=== PATIENT | female | born 1975 | race Caucasian/White ===

== ENCOUNTER 2019-12-07 20:00 | Emergency (ER) | payer OTHER, SELFPAY ==
[2019-12-07 20:10] VITALS: BP 150/85; PULSE 96; RESP 20; TEMP 37.2; O2SAT 98; BMI 22.7
--- NOTE | 2019-12-07 20:33 | ED_ITS ---
HPI - General Adult General Chief complaint: Urogenital-Female Stated complaint: bladder infection past month Time Seen by Provider: 12/07/19 20:09 Source: patient Mode of arrival: Ambulatory Limitations: no limitations History of Present Illness HPI narrative: 43-year-old female here for evaluation of 1 month of dysuria and blood in her urine. She states she has been seen multiple times for this in the past at multiple facilities. She stated that initially she was told that she had a kidney stone which he states this was based off of physical exam is she had no CT scan performed. She was given Flomax. She has quit taking that medication. She has been seen several times since then. She states she has b een tested for gonorrhea and chlamydia and has been negative. Approximately 7- 10 days ago she finished a course of Macrobid that was prescribed by another individual. She does not remember ever being told that he urine culture had been done. At 1 point she was told just to drink cranberry juice and increase her fluid intake. She has 1 week away from starting her menstrual cycle. She is not concerned about sexually transmitted infections. She denies any abdominal pain. She states she is having quite a bit of burning in her urethra. No vaginal bleeding. No change in her bowel habits. No rashes. No other lumps or bumps or other concerning findings on her genital region. Related Data Previous Rx's Medication Instructions Recorded phenazopyridine [Pyridium] 100 mg PO TID PRN #6 tab 12/07/19 Allergies Allergy/AdvReac Type Severity Reaction Status Date / Time ciprofloxacin Allergy Verified 12/07/19 20:20 levofloxacin [From Levaquin] Allergy Verified 12/07/19 20:20 Review of Systems Constitutional Constitutional: Denies fatigue, Denies fever(s) and Denies headache(s) ENT Ears, Nose, Mouth, and Throat: Denies headache(s), Denies neck pain, Denies sinus pain and Denies sore throat Cardiovascular Cardiovascular: Denies chest pain and Denies dyspnea Respiratory Respiratory: Denies dyspnea Gastrointestinal Gastrointestinal: Denies abdominal pain, Denies change in bowel habits, Denies nausea and Denies vomiting Genitourinary Genitourinary: Reports dysuria, Denies genital lesions, Denies urinary hesitancy, Denies urinary incontinence and Reports urinary urgency Genitourinary: Reports dysuria, Denies genital pruritis, Denies genital lesions, Denies dysmenorrhea, Denies urinary incontinence, Denies urinary hesitancy, Reports urinary urgency and Denies vaginal discharge Musculoskeletal Musculoskeletal: Denies arthralgias, Denies myalgias and Denies neck pain Integumentary/Breasts Skin/Breast: Denies lesions and Denies rash Neurologic Neurologic: Denies behavioral changes, Denies confusion and Denies headache(s) Psychiatric Psychiatric: Denies behavioral changes and Denies confusion Endocrine Endocrine: Denies fatigue Hematologic/Lymphatic Hematologic/Lymphatic: Denies easy bleeding and Denies easy bruising Allergic/Immunologic Allergic/Immunologic: Denies urticaria Patient History Medical History Healthy adult (Acute) Social History Smoking Status: Never smoker Smoking Status: Never smoker alcohol intake frequency: 0-2 drinks per day Substance Use Type: does not use Exam Initial Vital Signs Initial Vital Signs: Vital Signs Temperature 98.9 F 12/07/19 20:10 Pulse Rate 96 H 12/07/19 20:10 Respiratory Rate 20 12/07/19 20:10 Blood Pressure 150/85 H 12/07/19 20:10 Pulse Oximetry 98 12/07/19 20:10 Const General: cooperative, comfortable and well developed Limitations: mental status not altered [facility] Head: normal to inspection and normocephalic Resp Effort & Inspection: normal respiratory effort Cardio Rate: regular rate GI Inspection: non-distended Skin Lesions: no lesions Rashes: no rashes Neuro General: patient alert and patient awake Cognition: normal cognition Speech: speech normal Extrem General: normal to inspection and capillary refill normal Psych Appearance: grossly normal and well kempt Course Orders Ordered: ED Orders 12/07/19 20:34 Urine Microscopic Stat 12/07/19 20:48 Basic Metabolic Panel Stat Complete Blood Count AUTO DIFF Stat Urine Culture Stat Discontinued Medications Phenazopyridine HCl (Pyridium) 100 mg PO NOW ONE Stop: 12/07/19 21:29 Last Admin: 12/07/19 21:33 Dose: 100 mg Documented by: ASHLEY Vital Signs Vital signs: Vital Signs - 8 hr 12/07/19 20:10 12/07/19 21:39 Temperature 98.9 F Pulse Rate 96 H 82 Respiratory Rate 20 16 Blood Pressure 150/85 H 121/73 Pulse Oximetry 98 98 Medical Decision Making Lab Data Lab results reviewed: Yes I reviewed the patient's lab results. Result diagrams: 12/07/19 20:48 12/07/19 20:48 Labs: Lab Results 12/07/19 12/07/19 12/07/19 Range/Units 20:34 20:48 20:48 WBC 8.7 (4.5-11.0) X10^3/uL RBC 4.12 (4.0-5.2) X10^6/uL Hgb 13.2 (12.0-16.0) g/dL Hct 38.7 (36-46) % MCV 93.9 (80-100) fL MCH 32.0 (26-34) PG MCHC 34.1 (30-36) % RDW 13.8 (11.6-14.8) % Plt Count 283 (150-400) X10^3/uL Neut % (Auto) 51.2 (50-75) % Lymph % (Auto) 39.9 (25-40) % O'Brien % (Auto) 6.8 (3-14) % Eos % (Auto) 1.5 L (2-4) % Baso % (Auto) 0.6 (0-2) % Neut # (Auto) 4500 (9654-5840) /uL Lymph # (Auto) 3500 (7818-0561) /uL O'Brien # (Auto) 600 (0-900) /uL Eos # (Auto) 100 (0-450) /uL Baso # (Auto) 100 (0-100) /uL Sodium 138 (137-145) mmol/L Potassium 3.9 (3.4-5.1) mmol/L Chloride 105 (98-107) mmol/L Carbon Dioxide 26 (22-32) mmol/L BUN 14 (7-17) mg/dL Creatinine 0.45 L (0.52-1.04) mg/dL Estimated GFR > 60.0 (>60) mL/min BUN/Creatinine Ratio 31.1 H (6-22) Glucose 129 H (70-100) mg/dL Calcium 8.7 (8.4-10.2) mg/dL Urine RBC None seen (0-5/HPF) Urine WBC 0-1/hpf (0-5/HPF) Ur Squamous Epith Cells 1-5 /hpf (0-5/HPF) Amorphous Sediment 1+ Urine Bacteria None seen (None) Urine Mucus 2+ H (Negative) Ur Culture Indicated? Cult not indicated Point of Care Testing Test Results Negative Urine Dip Bedside Urine Glucose Negative Bedside Urine Bilirubin - Negative Bedside Urine Ketone - Negative Urine Specific [place] 1.030 Bedside Urine Occult Blood +/- Bedside Urine pH 6.0 Bedside Urine Protein - Negative Bedside Urine Urobilinogen - Negative Bedside Urine Nitrite - Negative Bedside Urine Leukocytes - Negative Esterase Point of care testing: Point of Care Testing Test Results Negative Urine Dip Bedside Urine Glucose Negative Bedside Urine Bilirubin - Negative Bedside Urine Ketone - Negative Urine Specific [place] 1.030 Bedside Urine Occult Blood +/- Bedside Urine pH 6.0 Bedside Urine Protein - Negative Bedside Urine Urobilinogen - Negative Bedside Urine Nitrite - Negative Bedside Urine Leukocytes - Negative Esterase MDM Narrative Medical decision making narrative: Patient's kidney function is unremarkable. She has no red blood cells in her urinalysis. She also has no other findings on her urinalysis had make me concerned for urinary tract infection. Urine culture was obtained to confirm this. Patient states she has been tested for sexually transmitted disease in the past and she is not concerned about that now. I will hold on further testing because of this. I did not do a pelvic exam but she denied any lumps or bumps or other lesions associated with the genital region. I do have low suspicion for kidney stones. Had a discussion with the patient regarding her dysuria. We did discuss the fact that she has had hematuria in the past with this could potentially mean as this may actually cause some bladder irritation. I informed her that I feel we should hold on any antibiotic s until the urine culture results so that we do not potentially give her medications as she does not need. She expressed understanding of this. I told her that we would call for any positive results in need of antibiotics. Will send her home with prescription for peridium as this may help with some of the bladder irritation that she is having. Informed her that she needed to make contact with the primary doctor so that her symptoms do not improve she can get a referral to see Urology or gynecology. Feel patient could be safely discharged home. I feel we can hold on any radiologic studies for now given her history and physical exam. Patient was given return precautions. She expressed understanding and agreement. Discharge Plan Departure Patient Disposition: Home Clinical Impression: Dysuria Discharge Date/Time: 12/07/19 21:40 Instructions: DI for Dysuria -- Adult Activity Restrictions/Additional Instructions: A urine culture was pending at the time of your discharge. We will call you for any positive results. This take several days to result. If you would definitively like to know the results of the culture you can contact his here at [phone]. I also recommend that you contact your insurance company to establish a primary provider in the area your moving. Return to the emergency department for any new or worsening symptoms Prescriptions: New phenazopyridine [Pyridium] 100 mg tablet 100 mg PO TID PRN (Reason: pain) Qty: 6 RF: 0
[2019-12-07 20:35] LABS: Bacteria Urine None Seen; RBC Urine None Seen (0-5/HPF)
[2019-12-07 20:44] LABS: Amorphous Sediment Urine 1+; Culture Indicated Urine Cult Not Indicated; Mucus Urine 2+ (Negative); Squamous Epithelial Cell Urine 1-5 /HPF (0-5/HPF); WBC Urine 0-1/HPF (0-5/HPF)
[2019-12-07 20:57] LABS: Add Manual Diff / Slide Review NO; Basophils Absolute Auto 100 /uL (0-100); Basophils Percent Auto 0.6 % (0-2); Eosinophils Absolute Auto 100 /uL (0-450); Eosinophils Percent Auto 1.5 % (2-4); Hematocrit 38.7 % (36-46); Hemoglobin 13.2 g/dL (12.0-16.0); Lymphocytes Absolute Auto 3500 /uL (1100-4500); Lymphocytes Percent Auto 39.9 % (25-40); Mean Corpuscular HGB Conc 34.1 % (30-36); Mean Corpuscular Volume 93.9 fL (80-100); Monocytes Absolute Auto 600 /uL (0-900); Monocytes Percent Auto 6.8 % (3-14); Neutrophils Absolute Auto 4500 /uL (1500-7000); Neutrophils Percent Auto 51.2 % (50-75); Platelet Count 283 X10^3/uL (150-400); Red Blood Cell Count 4.12 X10^6/uL (4.0-5.2); Red Cell Distribution Width 13.8 % (11.6-14.8); White Blood Cell Count 8.7 X10^3/uL (4.5-11.0)
[2019-12-07 21:08] LABS: BUN Creatinine Ratio 31.1 (6-22); Blood Urea Nitrogen 14 mg/dL (7-17); Calcium 8.7 mg/dL (8.4-10.2); Carbon Dioxide 26 mmol/L (22-32); Chloride 105 mmol/L (98-107); Estimated Glomerular Filt Rate > 60.0 mL/min (>60); Glucose 129 mg/dL (70-100); HEMOLYSIS < 15 (0-50); Potassium 3.9 mmol/L (3.4-5.1); Sodium 138 mmol/L (137-145)
[2019-12-07] MEDS: PHENAZOPYRIDINE 100 MG TABLET PO (21:33)
[2019-12-07 21:39] VITALS: BP 121/73; PULSE 82; RESP 16; O2SAT 98
== END 2019-12-07 21:40 | disposition home or self-care (01) ==
PROVIDERS: Emergency Provider Emergency Medicine
DX: R30.0 Dysuria (principal); R31.9 Hematuria, unspecified; Z87.442 Personal history of urinary calculi
CPT/HCPCS: 36415; 80048; 81003; 81015; 81025; 85025; 87077; 87086; 87186; 99283